=== PATIENT | female | born 2000 | race African-American/Black ===

== ENCOUNTER 2023-12-24 01:55 | Emergency (ER) | payer SELFPAY ==
[2023-12-24] MEDS ORDERED: Ketorolac Tromethamine 30 MG (1 mL) VIAL ONE (02:37)
[2023-12-24] MEDS ORDERED: Ondansetron PF 4 MG/2 ML Vial ONE (02:37)
== END 2023-12-24 04:24 | disposition home or self-care (01) ==
LOC: ERS 01:55
DX: F10.129 Alcohol abuse with intoxication, unspecified (principal)
CPT/HCPCS: 96374; 96375; J1885; J2405